=== PATIENT | female | born 1975 | race Two or more races ===

== ENCOUNTER 2018-08-11 07:27 | Emergency (ER) | payer OTHER ==
[~2018-08-11] VITALS: Ht 167.6 cm; Wt 84.8 kg
[~2018-08-11 07:27] MED LIST: DERMOTIC20 ML OTIC; KEFLEX500 MG PO; ULTRAM50 MG PO
[2018-08-11] MEDS ORDERED: NORVASC10 MG (07:47)
[2018-08-11] MEDS ORDERED: ZANTAC300 MG (07:48)
[2018-08-11] MEDS ORDERED: CIPRO500 MG PO (15:13)
[2018-08-11] MEDS ORDERED: FLAGYL500MG PO (15:13)
[2018-08-11] MEDS ORDERED: ZANTAC150 MG PO (15:13)
[2018-08-11] MEDS ORDERED: INTESTINEX680 M1 PO (15:13)
[2018-08-11] MEDS ORDERED: KETO10TA2 PO (15:13)
== END 2018-08-11 15:23 | disposition home or self-care (01) ==
LOC: ER 07:27
DX: K57.92 Diverticulitis of intestine, part unspecified, without perforation or abscess without bleeding (principal); R10.31 Right lower quadrant pain

== ENCOUNTER 2024-07-07 07:37 | Outpatient (CLI) | payer OTHER ==
[~2024-07-07 07:37] MED LIST changes: +CIPRO500 MG PO; +FLAGYL500MG PO; +INTESTINEX680 M1 PO; +KETO10TA2 PO; +NORVASC10 MG; +ZANTAC150 MG PO; +ZANTAC300 MG
[2024-07-07 08:17] LABS: HEMATOCRIT 33.8 % (36.0-45.00); HEMOGLOBIN 11.1 g/dL (12.0-15.00); MEAN CELL VOLUME 80.9 fL (80.00-100.00); MEAN CORPUSCULAR HEMOGLOBIN 26.6 pg (27.00-32.0); MEAN CORPUSCULAR HGB CONC 32.9 g/dl (32.0-36.0); PLATELET COUNT 326 K/uL (150-450); RED BLOOD COUNT 4.18 M/uL (4.00-6.00); RED CELL DISTRIBUTION WIDTH 14.4 % (11.5-14.5)
[2024-07-07 08:35] LABS: URINE EPITHELIAL CELLS 8.7 uL (0.0-38.8); URINE RBC 2.1 uL (0.0-20.8)
[2024-07-07 08:53] LABS: ALBUMIN 3.6 gm/dL (3.4-5.0); BILIRUBIN TOTAL 0.58 mg/dL (0.3-1.2); CALCIUM 8.6 mg/dL (8.5-10.1); CHOL HDL RATIO 3.7 (0-5.0); CREATININE SERUM 0.69 mg/dL (0.55-1.02); FERRITIN 7.1 NG/ML (8-252); GFR 90.43; GLOBULINA 3.5 G/DL (2.4-3.5); POTASSIUM 3.91 mEq/L (3.5-5.1); T4 FREE 1.11 NG/ML (0.76-1.46); TOTAL PROTEIN 7.1 gm/dL (6.4-8.2); TSH 1.29 uIU/mL (0.358-3.74)
[2024-07-07 08:58] LABS: URINE APPEARANCE CLEAR; URINE BILIRRUBIN NEGATIVE (NEGATIVE); URINE BLOOD NEGATIVE; URINE COLOR YELLOW; URINE GLUCOSE NEGATIVE (NEGATIVE); URINE KETONE NEGATIVE (NEGATIVE); URINE LEUKOCYTE NEGATIVE; URINE NITRATE NEGATIVE; URINE PROTEIN NEGATIVE (NEGATIVE); URINE UROBILINOGEN 0.2 E.U./dl; URINE WBC 1.5 uL (0.0-23.2)
== END 2024-07-07 07:45 | disposition home or self-care (01) ==
LOC: LAB 07:37
PROVIDERS: ATTEND Internal Medicine
DX: D50.0 Iron deficiency anemia secondary to blood loss (chronic) (principal); I10 Essential (primary) hypertension; K57.32 Diverticulitis of large intestine without perforation or abscess without bleeding; Z12.31 Encounter for screening mammogram for malignant neoplasm of breast; N64.4 Mastodynia; R94.6 Abnormal results of thyroid function studies; R73.03 Prediabetes; E78.2 Mixed hyperlipidemia; D50.9 Iron deficiency anemia, unspecified

== ENCOUNTER 2024-10-16 09:59 | Outpatient (CLI) | payer OTHER ==
[2024-10-16 10:52] LABS: URINE APPEARANCE Clear; URINE BILIRRUBIN Negative (NEGATIVE); URINE BLOOD Moderate; URINE COLOR Yellow; URINE GLUCOSE Negative (NEGATIVE); URINE KETONE Negative (NEGATIVE); URINE LEUKOCYTE Negative; URINE NITRATE Negative; URINE PROTEIN Negative (NEGATIVE); URINE UROBILINOGEN 0.2 E.U./dl
[2024-10-16 10:57] LABS: URINE BACTERIA 15.8 uL (0.0-1933)
[2024-10-16 11:19] LABS: URINE EPITHELIAL CELLS 0.9 uL (0.0-38.8); URINE WBC 0.4 uL (0.0-23.2)
[2024-10-16 11:20] LABS: HEMATOCRIT 35.9 % (36.0-45.00); HEMOGLOBIN 12.1 g/dL (12.0-15.00); MEAN CELL VOLUME 82.2 fL (80.00-100.00); MEAN CORPUSCULAR HEMOGLOBIN 27.8 pg (27.00-32.0); MEAN CORPUSCULAR HGB CONC 33.8 g/dl (32.0-36.0); PLATELET COUNT 278 K/uL (150-450); RED BLOOD COUNT 4.37 M/uL (4.00-6.00); RED CELL DISTRIBUTION WIDTH 14.9 % (11.5-14.5)
[2024-10-16 12:17] LABS: ALBUMIN 3.5 gm/dL (3.4-5.0); BILIRUBIN TOTAL 0.3 mg/dL (0.3-1.2); CALCIUM 8.6 mg/dL (8.5-10.1); CHOL HDL RATIO 4.2 (0-5.0); CREATININE SERUM 0.7 mg/dL (0.55-1.02); FERRITIN 14.7 NG/ML (8-252); GFR 88.57; GLOBULINA 3.6 G/DL (2.4-3.5); POTASSIUM 3.68 mEq/L (3.5-5.1); T4 TOTAL 10.55 UG/DL (4.8-13.9); TOTAL PROTEIN 7.1 gm/dL (6.4-8.2); TSH 1.49 uIU/mL (0.358-3.74)
[2024-10-19 12:44] LABS: T3 TOTAL 1.53 ng/ml (0.846-2.02); VITAMIN D3 25 HYDROXY 48.81 ng/ml (30-120)
== END 2024-10-16 10:05 | disposition home or self-care (01) ==
LOC: LAB 09:59
PROVIDERS: ATTEND Specialist
DX: E03.9 Hypothyroidism, unspecified (principal); E16.2 Hypoglycemia, unspecified; E78.5 Hyperlipidemia, unspecified; E55.9 Vitamin D deficiency, unspecified; N91.1 Secondary amenorrhea; E22.1 Hyperprolactinemia; D50.0 Iron deficiency anemia secondary to blood loss (chronic); I10 Essential (primary) hypertension; K57.32 Diverticulitis of large intestine without perforation or abscess without bleeding; E11.69 Type 2 diabetes mellitus with other specified complication

== ENCOUNTER 2024-10-28 09:14 | Outpatient (CLI) | payer OTHER | END 2024-10-28 09:16 | disposition home or self-care (01) | LOC: MAMO-SONO 09:14 | PROVIDERS: ATTEND Specialist | DX: N60.01 Solitary cyst of right breast (principal); N60.02 Solitary cyst of left breast ==

== ENCOUNTER 2025-01-17 06:58 | Outpatient (CLI) | payer OTHER ==
[2025-01-17 08:14] LABS: PH,URINE 6.5 (5.0-8.0); URINE APPEARANCE Clear; URINE BILIRRUBIN Negative (NEGATIVE); URINE BLOOD Negative; URINE COLOR Yellow; URINE GLUCOSE Negative (NEGATIVE); URINE KETONE Negative (NEGATIVE); URINE LEUKOCYTE Negative; URINE NITRATE Negative; URINE PROTEIN Negative (NEGATIVE); URINE UROBILINOGEN 0.2 E.U./dl
[2025-01-17 08:19] LABS: URINE BACTERIA 2369.2 uL (0.0-1933); URINE EPITHELIAL CELLS 24.6 uL (0.0-38.8); URINE RBC 9.4 uL (0.0-20.8); URINE WBC 19.9 uL (0.0-23.2)
[2025-01-17 08:22] LABS: MEAN CELL VOLUME 83.5 fL (80.00-100.00); MEAN CORPUSCULAR HEMOGLOBIN 27.7 pg (27.00-32.0); MEAN CORPUSCULAR HGB CONC 33.2 g/dl (32.0-36.0); PLATELET COUNT 359 K/uL (150-450); RED BLOOD COUNT 4.31 M/uL (4.00-6.00); RED CELL DISTRIBUTION WIDTH 14.2 % (11.5-14.5)
[2025-01-17 08:23] LABS: URINE CAST 0.14 uL (0.0-1.40)
[2025-01-17 09:18] LABS: ALBUMIN 3.7 gm/dL (3.4-5.0); BILIRUBIN TOTAL 0.23 mg/dL (0.3-1.2); CALCIUM 9.1 mg/dL (8.5-10.1); CHOL HDL RATIO 2.4 (0-5.0); CREATININE SERUM 0.87 mg/dL (0.55-1.02); FERRITIN 17.8 NG/ML (8-252); GFR 68.92; GLOBULINA 3.3 G/DL (2.4-3.5); POTASSIUM 3.85 mEq/L (3.5-5.1)
== END 2025-01-17 06:59 | disposition home or self-care (01) ==
LOC: LAB 06:58
PROVIDERS: ATTEND Internal Medicine
DX: D50.0 Iron deficiency anemia secondary to blood loss (chronic) (principal); I10 Essential (primary) hypertension; K57.32 Diverticulitis of large intestine without perforation or abscess without bleeding; E11.69 Type 2 diabetes mellitus with other specified complication; Z12.31 Encounter for screening mammogram for malignant neoplasm of breast; N64.4 Mastodynia

== ENCOUNTER 2025-01-20 06:39 | Outpatient (CLI) | payer OTHER ==
[2025-01-20 10:32] LABS: ob NEGATIVE (NEGATIVE)
== END 2025-01-20 06:42 | disposition home or self-care (01) ==
LOC: LAB 06:39
PROVIDERS: ATTEND Internal Medicine
DX: K57.32 Diverticulitis of large intestine without perforation or abscess without bleeding (principal); I10 Essential (primary) hypertension; E11.69 Type 2 diabetes mellitus with other specified complication; Z12.31 Encounter for screening mammogram for malignant neoplasm of breast; N64.4 Mastodynia; Z12.11 Encounter for screening for malignant neoplasm of colon

== ENCOUNTER → 2025-03-03 | Emergency (ER) | payer OTHER ==
[~2025-03-03] VITALS: Ht 167.6 cm; Wt 72.6 kg
[~2025-03-03] MED LIST changes: +0.9 % SODIUM CHLORIDE 1,000 ML IV STA; +ACIPHEX20 MG; +EZALLOR SPRINKLE5 MG; +FAMOTIDINE/PF 20 MG in 0.9 % SODIUM CHLORIDE 8 ML IV PUSH STA; +FAMOTIDINE/PF 20 MG/2 ML VIAL ONE; +FENOFIBRIC ACID35 MG; +LOSARTAN-HCTZ1 EAC1; +ONDANSETRON HCL 2 MG/ML VIAL IV STA; +ONDANSETRON HCL 2 MG/ML VIAL ONE; +PEPCID AC10 MG; +POTASSIUM CHLORIDE/D5-0.9%NACL 1,000 ML IV ONE
[2025-03-03 12:44] VITALS: BP 113/74; O2SAT 99
[2025-03-03 13:43] LABS: BASO % 0.3 % (0.1-1.2); EOS # 0.26 (0.04-0.54); EOS % 4.1 % (0.7-7.0); HEMATOCRIT 37.7 % (34.1-44.9); HEMOGLOBIN 12.5 g/dL (11.2-15.7); LYMPH # 1.33 (1.18-3.74); LYMPH % 20.7 % (19.3-53.1); MEAN CORPUSCULAR HEMOGLOBIN 27.1 pg (25.6-32.2); MONO # 0.42 (0.24-0.82); MONO % 6.6 % (4.7-12.5); NEUT # 4.37 (1.56-6.13); NEUT % 68.1 % (34.0-71.1); PLATELET COUNT 307 K/uL (163-369); RED BLOOD COUNT 4.62 M/uL (3.93-5.22); RED CELL DISTRIBUTION WIDTH 14.3 % (11.6-14.4)
[2025-03-03 15:25] LABS: CREATININE SERUM 0.81 mg/dL (0.55-1.02); GFR 74.84
[2025-03-03 15:39] LABS: POTASSIUM 2.96 mEq/L (3.5-5.1)
[2025-03-03 15:57] LABS: PH,URINE 6.5 (5.0-8.0); URINE APPEARANCE Clear; URINE BILIRRUBIN Negative (NEGATIVE); URINE BLOOD Negative; URINE COLOR Yellow; URINE GLUCOSE Negative (NEGATIVE); URINE KETONE Negative (NEGATIVE); URINE LEUKOCYTE Negative; URINE NITRATE Negative; URINE PROTEIN Negative (NEGATIVE)
[2025-03-03 16:04] LABS: URINE BACTERIA 51.4 uL (0.0-1933); URINE EPITHELIAL CELLS 17.2 uL (0.0-38.8); URINE RBC 11.4 uL (0.0-20.8); URINE WBC 3.1 uL (0.0-23.2)
[2025-03-03 16:14] LABS: URINE CAST 0.88 uL (0.0-1.40)
== END | disposition left against medical advice (07) ==
LOC: ER 12:04
PROVIDERS: Emergency Medicine
DX: K52.89 Other specified noninfective gastroenteritis and colitis (principal); R10.9 Unspecified abdominal pain; Z88.2 Allergy status to sulfonamides; Z91.018 Allergy to other foods
CPT/HCPCS: 36415; 74177; Q9965

== ENCOUNTER 2025-05-07 08:25 | Outpatient (CLI) | payer OTHER ==
[~2025-05-07 08:25] MED LIST changes: -0.9 % SODIUM CHLORIDE 1,000 ML IV STA; -FAMOTIDINE/PF 20 MG in 0.9 % SODIUM CHLORIDE 8 ML IV PUSH STA; -FAMOTIDINE/PF 20 MG/2 ML VIAL ONE; -ONDANSETRON HCL 2 MG/ML VIAL IV STA; -ONDANSETRON HCL 2 MG/ML VIAL ONE; -POTASSIUM CHLORIDE/D5-0.9%NACL 1,000 ML IV ONE
[2025-05-07 09:40] LABS: BASO % 0.6 % (0.1-1.2); EOS # 0.29 (0.04-0.54); EOS % 4.1 % (0.7-7.0); LYMPH # 2.47 (1.18-3.74); LYMPH % 35.3 % (19.3-53.1); MEAN PLATELET VOLUME 9.90 fl (9.4-12.4); MONO # 0.41 (0.24-0.82); MONO % 5.9 % (4.7-12.5); NEUT # 3.78 (1.56-6.13); NEUT % 54.0 % (34.0-71.1); RED CELL DISTRIBUTION WIDTH 13.6 % (11.6-14.4)
[2025-05-07 09:46] LABS: URINE APPEARANCE Clear; URINE BILIRRUBIN Negative (NEGATIVE); URINE BLOOD Negative; URINE COLOR Yellow; URINE GLUCOSE Negative (NEGATIVE); URINE KETONE Negative (NEGATIVE); URINE LEUKOCYTE Negative; URINE NITRATE Negative; URINE PROTEIN Negative (NEGATIVE); URINE UROBILINOGEN 1.0 E.U./dl
[2025-05-07 09:50] LABS: URINE BACTERIA 10.8 uL (0.0-1933); URINE EPITHELIAL CELLS 6.7 uL (0.0-38.8); URINE RBC 7.6 uL (0.0-20.8)
[2025-05-07 10:06] LABS: CHOL HDL RATIO 2.5 (0-5.0); HDL 61.0 mg/dl (40-60); LDL 73.0 mg/dl (0-130); VLDL 15.0 (0-39)
[2025-05-07 10:10] LABS: URINE CAST 0.00 uL (0.0-1.40); URINE WBC 1.6 uL (0.0-23.2)
== END 2025-05-07 08:29 | disposition home or self-care (01) ==
LOC: LAB 08:25
PROVIDERS: ATTEND Emergency Medicine Pediatric Emergency Medicine
DX: I10 Essential (primary) hypertension (principal); K57.32 Diverticulitis of large intestine without perforation or abscess without bleeding; E11.69 Type 2 diabetes mellitus with other specified complication; Z12.31 Encounter for screening mammogram for malignant neoplasm of breast; N64.4 Mastodynia; Z12.11 Encounter for screening for malignant neoplasm of colon

== ENCOUNTER → 2025-08-02 | Emergency (ER) | payer OTHER ==
[~2025-08-02] MED LIST changes: +DEXAMETHASONE SODIUM PHOSPHATE 4 MG/ML VIAL IM ONE; +DEXAMETHASONE SODIUM PHOSPHATE 4 MG/ML VIAL ONE; +KETOROLAC TROMETHAMINE 60 MG VIAL IM ONE; +NAPR500T14 PO; +ORPHENADRINE CITRATE 100 MG TABLET PO ONE
[2025-08-02 16:05] LABS: BASO % 0.7 % (0.1-1.2); EOS # 0.23 (0.04-0.54); EOS % 2.3 % (0.7-7.0); LYMPH # 3.54 (1.18-3.74); LYMPH % 35.0 % (19.3-53.1); MEAN PLATELET VOLUME 9.40 fl (9.4-12.4); MONO # 0.43 (0.24-0.82); MONO % 4.3 % (4.7-12.5); NEUT # 5.82 (1.56-6.13); NEUT % 57.5 % (34.0-71.1); RED CELL DISTRIBUTION WIDTH 14.0 % (11.6-14.4)
[2025-08-02 16:25] LABS: URINE APPEARANCE Clear; URINE BILIRRUBIN Negative (NEGATIVE); URINE BLOOD Negative; URINE COLOR Yellow; URINE GLUCOSE Negative (NEGATIVE); URINE KETONE Negative (NEGATIVE); URINE LEUKOCYTE Negative; URINE NITRATE Negative; URINE PROTEIN Negative (NEGATIVE); URINE UROBILINOGEN 0.2 E.U./dl
[2025-08-02 16:29] LABS: URINE BACTERIA 67.1 uL (0.0-1933); URINE CAST 0.00 uL (0.0-1.40); URINE EPITHELIAL CELLS 2.1 uL (0.0-38.8); URINE RBC 7.0 uL (0.0-20.8); URINE WBC 0.6 uL (0.0-23.2)
[2025-08-02 16:37] LABS: ALT/SGPT 26.0 U/L (12-78); AST/SGOT 13.0 U/L (15-37); BILIRUBIN TOTAL 0.2 mg/dL (0.3-1.2); BUN CREA RATIO 23.0 (7.0-25.0); CREATININE SERUM 0.8 mg/dL (0.55-1.02); GFR 75.92; GLOBULINA 3.3 G/DL (2.4-3.5); GLUCOSE FASTING 130.0 mg/dL (65-100); OSMOLALITY SERUM 283.0 MOSM/KG (275-295)
== END | disposition home or self-care (01) ==
LOC: ER 14:00
DX: S19.9XXA Unspecified injury of neck, initial encounter (principal); V49.9XXA Car occupant (driver) (passenger) injured in unspecified traffic accident, initial encounter; Y93.89 Activity, other specified; Y92.89 Other specified places as the place of occurrence of the external cause; Y99.8 Other external cause status; M54.2 Cervicalgia; I10 Essential (primary) hypertension; Z88.2 Allergy status to sulfonamides; Z91.018 Allergy to other foods

== ENCOUNTER → 2025-08-23 12:18 | Outpatient (CLI) | payer OTHER ==
[~2025-08-23 12:18] MED LIST changes: -DEXAMETHASONE SODIUM PHOSPHATE 4 MG/ML VIAL IM ONE; -DEXAMETHASONE SODIUM PHOSPHATE 4 MG/ML VIAL ONE; -KETOROLAC TROMETHAMINE 60 MG VIAL IM ONE; -ORPHENADRINE CITRATE 100 MG TABLET PO ONE
== END | disposition home or self-care (01) ==
LOC: NUCLEAR 12:18
DX: M81.0 Age-related osteoporosis without current pathological fracture (principal)